=== PATIENT | female | born 1990 | race Caucasian/White ===

== ENCOUNTER 2019-03-25 12:31 | Day surgery (SDC) | payer OTHER ==
[~2019-03-25] VITALS: Ht 165.1 cm; Wt 59.0 kg
[2019-03-25] MEDS ORDERED: CEFAZOLIN 1 GM IVPB PREMIX 50 ML IV ONE (13:00)
[2019-03-25] MEDS ORDERED: ONDANSETRON HCL 4 MG/2 ML VIAL IVP ONE (13:50)
[2019-03-25] MEDS ORDERED: SEVOFLURANE 15 MIN GAS INH ONE (13:50)
[2019-03-25] MEDS ORDERED: METHYLERGONOVINE MALEATE 0.2 MG/ML AMP IM ONE (13:50)
[2019-03-25] MEDS ORDERED: KETOROLAC TROMETHAMINE 30 MG VIAL IVP ONE (13:50)
[2019-03-25] MEDS ORDERED: MIDAZOLAM HCL 5 MG/5 ML VIAL IVP ONE (13:50)
[2019-03-25] MEDS ORDERED: WATER FOR IRRIGATION,STERILE 1,000 ML IRRIG.SOLN IR ONE (13:50)
[2019-03-25] MEDS ORDERED: PROPOFOL 200MG/ 20ML VIAL (DIPRIVAN) IV ONE (13:50)
[2019-03-25] MEDS ORDERED: METHYLERGONOVINE MALEATE 0.2 MG/ML AMP ONE (14:25)
[2019-03-25] MEDS ORDERED: ONDANSETRON HCL 4 MG/2 ML VIAL IVP PRN ×2 (14:30→15:00)
[2019-03-25] MEDS ORDERED: KETOROLAC TROMETHAMINE 30 MG VIAL IVP PRN (14:30)
[2019-03-25] MEDS ORDERED: fentaNYL CITRATE/PF 100 MCG/2 ML AMP IVP PRN ×2 (14:30)
[2019-03-25 17:30] VITALS: BP_SYST 104
== END 2019-03-25 16:15 | disposition home or self-care (01) ==
LOC: SDS 12:31
PROVIDERS: ATTEND Specialist
DX: O02.1 Missed abortion (principal)
CPT/HCPCS: 59820; 88305; J0690; J1885; J2210; J2250; J2405; J2704